=== PATIENT | female | born 1980 | race Caucasian/White ===

== ENCOUNTER 2021-09-15 15:22 | Emergency (ER) | payer SELFPAY ==
[~2021-09-15] VITALS: Ht 162.6 cm; Wt 77.1 kg
[2021-09-15] MEDS ORDERED: AMPDEX30CR PO (15:36)
[2021-09-15] MEDS ORDERED: Adderall 30 MG30 MG PO (15:39)
== END 2021-09-15 15:39 | disposition home or self-care (01) ==
LOC: ER 15:22
DX: Z76.0 Encounter for issue of repeat prescription (principal)
CPT/HCPCS: 99281

== ENCOUNTER → 2021-09-20 | Outpatient (CLI) | payer SELFPAY ==
[~2021-09-20] MED LIST: AMPDEX30CR PO; Adderall 30 MG30 MG PO
[2021-09-20 16:05] LABS: U Amphetamine Screen DETECTED; U Barbituate Screen Not Detected; U Benzodiazapine Screen Not Detected; U Buprenorphine Screen DETECTED; U Cannabinoids Screen Not Detected; U Cocaine Screen Not Detected; U Methadone Screen Not Detected; U Methamphetamine Screen Not Detected; U Opiates Screen Not Detected; U Oxycodone Screen Not Detected; U Phencyclidine Screen Not Detected; U Propoxyphene Screen Not Detected
== END ==
LOC: LAB SHORT 13:59
PROVIDERS: Physician Assistant
DX: Z79.899 Other long term (current) drug therapy (principal)

== ENCOUNTER 2022-04-25 19:23 | Emergency (ER) | payer BC ==
[~2022-04-25] VITALS: Ht 162.6 cm; Wt 79.4 kg
[2022-04-25] MEDS ORDERED: ARMODAFINIL250 MG PO (19:35)
[2022-04-25] MEDS ORDERED: NUVIGIL250 MG PO (20:06)
== END 2022-04-25 20:10 | disposition home or self-care (01) ==
LOC: ER 19:23
DX: Z76.0 Encounter for issue of repeat prescription (principal); G47.419 Narcolepsy without cataplexy; Z79.899 Other long term (current) drug therapy
CPT/HCPCS: 99281

== ENCOUNTER → 2022-08-01 | Outpatient (CLI) | payer BC ==
[~2022-08-01] MED LIST changes: +ARMODAFINIL250 MG PO; +NUVIGIL250 MG PO
[2022-08-05 11:10] LABS: HPV 16 Negative (Negative); HPV 18 Negative (Negative); HPV OTHER HR TYPES Negative (Negative)
== END | disposition home or self-care (01) ==
LOC: LAB SHORT 10:19 → LAB 10:19
PROVIDERS: Family Medicine
DX: Z01.419 Encounter for gynecological examination (general) (routine) without abnormal findings (principal)
CPT/HCPCS: 87624; G0123

== ENCOUNTER 2022-10-15 17:32 | Emergency (ER) | payer BC ==
[~2022-10-15] VITALS: Ht 160 cm; Wt 81.7 kg
[2022-10-15] MEDS ORDERED: DEXLANSOPRAZOLE60 MG PO (18:57)
[2022-10-15] MEDS ORDERED: PREG200 PO (18:57)
[2022-10-15] MEDS ORDERED: Amphetamine Sal20 MG PO (18:57)
[2022-10-15] MEDS ORDERED: DULOXETINE HCL60 M1 PO (18:57)
[2022-10-15] MEDS ORDERED: FLUOXETINE 10 MG CAP PO (18:58)
[2022-10-15] MEDS ORDERED: ABILIFY5 MG PO (18:58)
[2022-10-15] MEDS ORDERED: SUBOXONE 8 MG-1 EACH SL ×2 (18:58→19:17)
[2022-10-15] MEDS ORDERED: AMOCLA875 PO (19:17)
[2022-10-15] MEDS ORDERED: Flonase 0.05% N16 GM (19:17)
== END 2022-10-15 19:25 | disposition home or self-care (01) ==
LOC: ER 17:32
DX: H66.92 Otitis media, unspecified, left ear (principal); J32.9 Chronic sinusitis, unspecified
CPT/HCPCS: 99282